=== PATIENT | male | born 1985 | race Caucasian/White ===

== ENCOUNTER 2017-03-19 11:11 | Emergency (ER) | payer BC ==
[2017-03-19 11:23] VITALS: TEMP 99.4; BMI 24.3
[2017-03-19] MEDS ORDERED: KETOROLAC TROMETHAMINE 30 MG/1 ML VIAL IVPUSH ONE (11:24)
[2017-03-19] MEDS ORDERED: morphine CARPU-JECT 4 MG/1 ML DISP.SYRIN IVPUSH ONE (11:24)
[2017-03-19] MEDS ORDERED: ONDANSETRON 4 MG/2 ML VIAL IVPB ONE (11:24)
[2017-03-19] MEDS ORDERED: ONDANSETRON 4 MG/2 ML VIAL ONE (11:25)
[2017-03-19] MEDS ORDERED: KETOROLAC TROMETHAMINE 30 MG/1 ML VIAL ONE (11:25)
[2017-03-19] MEDS ORDERED: morphine CARPU-JECT 4 MG/1 ML DISP.SYRIN ONE (11:25)
[2017-03-19] MEDS ORDERED: SODIUM CHLORIDE 1,000 ML IV STA (11:40)
--- NOTE | 2017-03-19 11:46 | PDOC ---
History of Present Illness - History of Present Illness Initial Comments: 03/19/17 11:47 The patient is a 31-year-old male with past medical history of multiple sclerosis, irritable bowel syndrome, questionable history of kidney stones, status post appendectomy presents with right flank pain since this morning. Patient reports that this radiates towards his testicles but denies testicular pain. Denies dysuria, fevers. Reports nausea and vomiting. <Sarbjit Short - Last Filed: 03/19/17 11:47> - General History Source: Patient, Spouse Exam Limitations: No Limitations <Eric Maya - Last Filed: 03/19/17 15:29> - General Chief Complaint: Pain, Acute Stated Complaint: TESTICULAR PAIN, VOMITING Time Seen by Provider: 03/19/17 11:23 Past History <Sarbjit Short - Last Filed: 03/19/17 11:47> - Surgical History Appendectomy: Yes - Immunization History Immunization Up to Date: Yes - Psycho/Social/Smoking Cessation Hx Anxiety: No Suicidal Ideation: No Smoking History: Never smoked Have you smoked in the past 12 months: No If you are a former smoker, when did you quit?: 4 YRS Hx Alcohol Use: No Drug/Substance Use Hx: No Substance Use Type: None <Eric Maya - Last Filed: 03/19/17 15:29> - Past Medical History Allergies/Adverse Reactions: Allergies Allergy/AdvReac Type Severity Reaction Status Date / Time No Known Allergies Allergy Verified 03/19/17 11:14 Home Medications: Ambulatory Orders Albuterol Sulfate Inhaler - [Ventolin Hfa Inhaler -] 1 - 2 inh PO QID 07/29/16 Glatiramer Acetate [Glatopa] 20 mg SQ DAILY 03/19/17 Naproxen [Naprosyn -] 500 mg PO BID PRN #30 tablet 03/19/17 Ondansetron HCl [Zofran] 4 mg PO Q8H #15 tablet 03/19/17 Oxycodone HCl/Acetaminophen [Percocet 5-325 mg Tablet] 1 tab PO Q6H PRN #15 tablet MDD 4 03/19/17 Sertraline HCl [Zoloft] 50 mg PO DAILY 03/19/17 Tamsulosin HCl [Flomax] 0.4 mg PO DAILY #14 cap.er.24h 03/19/17 Review of Systems - Review of Systems Comments:: 03/19/17 11:47 GENERAL/CONSTITUTIONAL: No fever or chills. No weakness. HEAD, EYES, EARS, NOSE AND THROAT: No change in vision. No ear pain or discharge. No sore throat. CARDIOVASCULAR: No chest pain or shortness of breath. RESPIRATORY: No cough, wheezing, or hemoptysis. GASTROINTESTINAL Yes: Nausea, Vomiting, right flank pain No diarrhea or constipation. GENITOURINARY: No dysuria, frequency, or change in urination. MUSCULOSKELETAL: No joint or muscle swelling or pain. No neck or back pain. SKIN: No rash NEUROLOGIC: No headache, vertigo, loss of consciousness, or change in strength/ sensation. ENDOCRINE: No increased thirst. No abnormal weight change. HEMATOLOGIC/LYMPHATIC: No anemia, easy bleeding, or history of blood clots. ALLERGIC/IMMUNOLOGIC: No hives or skin allergy. <Sarbjit Short - Last Filed: 03/19/17 11:47> *Physical Exam - Vital Signs Last Vital Signs Temp Pulse Resp BP Pulse Ox 99.4 F 87 19 142/99 97 03/19/17 11:14 03/19/17 11:14 03/19/17 11:14 03/19/17 11:14 03/19/17 11:14 - Physical Exam Comments: 03/19/17 11:48 GENERAL: Awake, alert, and fully oriented, Uncomfortable appearing HEAD: No signs of trauma EYES: PERRLA, EOMI, sclera anicteric, conjunctiva clear ENT: Auricles normal inspection, hearing grossly normal, nares patent, oropharynx clear without exudates. Moist mucosa NECK: Normal ROM, supple, no lymphadenopathy, JVD, or masses LUNGS: Breath sounds equal, clear to auscultation bilaterally. No wheezes, and no crackles HEART: Regular rate and rhythm, normal S1 and S2, no murmurs, rubs or gallops ABDOMEN: Soft, Right CVA tenderness, RLQ tender to palpation, normoactive bowel sounds. No guarding, no rebound. No masses GENITOURINARY:: Circumcised, no testicular tenderness or swelling, no inguinal hernia appreciated EXTREMITIES: Normal range of motion, no edema. No clubbing or cyanosis. No cords, erythema, or tenderness NEUROLOGICAL: Cranial nerves II through XII grossly intact. Normal speech, normal gait SKIN: Warm, Dry, normal turgor, no rashes or lesions noted. <Sarbjit Short - Last Filed: 03/19/17 11:47> - Vital Signs Last Vital Signs Temp Pulse Resp BP Pulse Ox 99.4 F 87 19 142/99 97 03/19/17 11:14 03/19/17 11:14 03/19/17 11:14 03/19/17 11:14 03/19/17 11:14 <Eric Maya - Last Filed: 03/19/17 15:29> ED Treatment Course - Medications Given in the ED: ED Medications Discontinued Medications Generic Name Dose Route Start Last Admin Trade Name Freq PRN Reason Stop Dose Admin Ketorolac Tromethamine 30 mg 03/19/17 11:24 03/19/17 11:28 Toradol Injection - IVPUSH 03/19/17 11:25 30 mg ONCE ONE Administration Morphine Sulfate 4 mg 03/19/17 11:24 03/19/17 11:27 Morphine Injection - IVPUSH 03/19/17 11:25 4 mg ONCE ONE Administration Ondansetron HCl 4 mg 03/19/17 11:24 03/19/17 11:28 Zofran Injection IVPB 03/19/17 11:25 4 mg ONCE ONE Administration <Sarbjit Short - Last Filed: 03/19/17 11:47> - LABORATORY CBC & Chemistry Diagram: 03/19/17 11:45 03/19/17 11:45 - RADIOLOGY Radiology Studies Ordered: Category Date Time Status SPIRAL- RENAL-STONE CT [CT] Stat CT Scan 03/19/17 11:40 Ordered - Medications Given in the ED: ED Medications Discontinued Medications Generic Name Dose Route Start Last Admin Trade Name Freq PRN Reason Stop Dose Admin Ketorolac Tromethamine 30 mg 03/19/17 11:24 03/19/17 11:28 Toradol Injection - IVPUSH 03/19/17 11:25 30 mg ONCE ONE Administration Morphine Sulfate 4 mg 03/19/17 11:24 03/19/17 11:27 Morphine Injection - IVPUSH 03/19/17 11:25 4 mg ONCE ONE Administration Ondansetron HCl 4 mg 03/19/17 11:24 03/19/17 11:28 Zofran Injection IVPB 03/19/17 11:25 4 mg ONCE ONE Administration <Eric Maya - Last Filed: 03/19/17 15:29> Medical Decision Making - Medical Decision Making 03/19/17 11:42 A portion of this note was documented by scribe services under my direction. I have reviewed the details of the note, within reason, and agree with the documentation with the following case summary and management plan written by me. Patient treated in the ED. Nursing notes are reviewed and incorporated into the medical decision-making. Vital signs reviewed. Peripheral IV access obtained by the nurse, laboratory studies are drawn and sent, reviewed and interpreted by myself. Vital Signs Temp Pulse Resp BP Pulse Ox 99.4 F 87 19 142/99 97 03/19/17 11:14 03/19/17 11:14 03/19/17 11:14 03/19/17 11:14 03/19/17 11:14 31-year-old male with past medical history of multiple sclerosis, irritable bowel syndrome, questionable history of kidney stones, status post appendectomy presents with right flank pain since this morning. Patient reports that this radiates towards his testicles but denies testicular pain. Denies dysuria, fevers. Reports nausea and vomiting. The patient clinically appears to have renal colic. We'll obtain labs, urinalysis and a spiral CT. Pain control and reassess. 03/19/17 15:20 CAT scan demonstrates 2.5 x 2 mm at least partially obstructing right uterovesical junction stone with mild right renal hydronephrosis and hydroureter. CBC, BMP 03/19/17 11:45 03/19/17 11:45 CMP Sodium 142 mmol/L (136-145) 03/19/17 11:45 Potassium 4.3 mmol/L (3.5-5.1) 03/19/17 11:45 Chloride 105 mmol/L (98-107) 03/19/17 11:45 Carbon Dioxide 25 mmol/L (21-32) 03/19/17 11:45 Anion Gap 12 (8-16) 03/19/17 11:45 BUN 16 mg/dL (7-18) D 03/19/17 11:45 Creatinine 1.3 mg/dL (0.7-1.3) 03/19/17 11:45 Creat Clearance w eGFR > 60 (>60) 03/19/17 11:45 Random Glucose 113 mg/dL (74-106) H 03/19/17 11:45 Calcium 9.4 mg/dL (8.5-10.1) 03/19/17 11:45 Total Bilirubin 0.5 mg/dL (0.2-1.0) D 03/19/17 11:45 AST 19 U/L (15-37) 03/19/17 11:45 ALT 26 U/L (12-78) 03/19/17 11:45 Alkaline Phosphatase 47 U/L (45-117) 03/19/17 11:45 Total Protein 7.6 g/dl (6.4-8.2) 03/19/17 11:45 Albumin 4.4 g/dl (3.4-5.0) 03/19/17 11:45 Lipase 130 U/L (73-393) 03/19/17 11:45 Urine Test Results Urine Color Jennifer 03/19/17 14:00 Urine Appearance Clear 03/19/17 14:00 Urine pH 8.0 (5.0-8.0) 03/19/17 14:00 Urine Protein 2+ (NEGATIVE) H 03/19/17 14:00 Urine Glucose (UA) Negative (NEGATIVE) 03/19/17 14:00 Urine Ketones Negative (NEGATIVE) 03/19/17 14:00 Urine Blood Negative (NEGATIVE) 03/19/17 14:00 Urine Nitrite Negative (NEGATIVE) 03/19/17 14:00 Urine Bilirubin Negative (NEGATIVE) 03/19/17 14:00 Ur Leukocyte Esterase Negative (NEGATIVE) 03/19/17 14:00 Patient reports feeling much better. This is renal colic. Return precautions given. This includes fevers, uncontrolled pain, persistent vomiting. Patient verbalized understanding agrees with plan. He has his own urologist that he will follow up with. I discussed the physical exam findings, ancillary test results and final diagnoses with the patient. I answered all of the patient's questions. The patient was satisfied with the care received and felt comfortable with the discharge plan and treatment plan. The patient will call their primary care physician within 24 hours to arrange follow-up and will return to the Emergency Department with any new, persistant or worsening symptoms. <Eric Maya - Last Filed: 03/19/17 15:29> *DC/Admit/Observation/Transfer - Attestations Scribe Attestion: 03/19/17 11:48 Documentation prepared by Sarbjit Short, acting as medical imaging director for Eric Maya MD <Sarbjit Short - Last Filed: 03/19/17 11:47> - Discharge Dispostion Admit: No <Eric Maya - Last Filed: 03/19/17 15:29> Diagnosis at time of Disposition: Renal colic - Discharge Dispostion Disposition: HOME Condition at time of disposition: Improved - Prescriptions Prescriptions: Tamsulosin HCl [Flomax] 0.4 mg PO DAILY #14 cap.er.24h Naproxen [Naprosyn -] 500 mg PO BID PRN #30 tablet PRN Reason: Pain Oxycodone HCl/Acetaminophen [Percocet 5-325 mg Tablet] 1 tab PO Q6H PRN #15 tablet MDD 4 PRN Reason: Pain Level 6-10 Ondansetron HCl [Zofran] 4 mg PO Q8H #15 tablet - Patient Instructions Printed Discharge Instructions: DI for Kidney Stones Additional Instructions: Take 500 mg naproxen every 12 hours as needed for pain. Take a tablet of percocet every 6 hours as needed for severe pain control. Take zofran every 8 hours as needed for nausea. Take the flomax as prescribed. Drink plenty of fluids and rest. Follow up with your doctor.l
[2017-03-19 11:56] LABS: BASOPHIL 0.7 % (0-2.0); EOSINOPHIL 1.4 % (0-4.5); MCH 31.2 pg (25.7-33.7); MEAN CELL VOLUME 91.6 fl (80-96); MEAN PLT VOLUME 9.3 fl (7.5-11.1); NEUTROPHILS 66.4 % (42.8-82.8); PLATELET COUNT 214 K/MM3 (134-434); RDW 12.5 % (11.9-15.9); WHITE BLOOD COUNT 9.2 K/mm3 (4.0-10.0)
[2017-03-19 12:27] LABS: ALBUMIN 4.4 g/dl (3.4-5.0); ANION GAP 12 (8-16); BILIRUBIN,TOTAL 0.5 mg/dL (0.2-1.0); CALCIUM 9.4 mg/dL (8.5-10.1); CO2 25 mmol/L (21-32); CREATININE 1.3 mg/dL (0.7-1.3); GLUCOSE,RANDOM 113 mg/dL (74-106); SGOT/AST 19 U/L (15-37); SGPT/ALT 26 U/L (12-78); TOT PROT 7.6 g/dl (6.4-8.2)
[2017-03-19 12:28] LABS: ALK PHOS 47 U/L (45-117)
[2017-03-19 14:41] VITALS: BP 130/71; PULSE 52
[2017-03-19 14:57] LABS: URINE APPEARANCE CLEAR; URINE BILIRUBIN NEGATIVE (NEGATIVE); URINE BLOOD NEGATIVE (NEGATIVE); URINE COLOR AMBER; URINE GLUCOSE (UA) NEGATIVE (NEGATIVE); URINE KETONE NEGATIVE (NEGATIVE); URINE LEUK ESTERASE NEGATIVE (NEGATIVE); URINE NITRITE NEGATIVE (NEGATIVE); URINE UROBILINOGEN NEGATIVE mg/dL (0.2-1.0)
[2017-03-19 15:03] LABS: URINE PROTEIN 2+ (NEGATIVE)
[2017-03-19] MEDS ORDERED: TAMSULOSIN HCL 0.4 MG CAP.ER.24H (FP) PO ONE (15:15)
[2017-03-19] MEDS ORDERED: TAMSULOSIN HCL 0.4 MG CAP.ER.24H (FP) ONE (15:21)
[2017-03-19 16:02] LABS: URINE MUCUS MODERATE; URINE RBC 25 /hpf (0-3)
== END 2017-03-19 15:40 | disposition home or self-care (01) ==
LOC: JER 11:11
PROC: 3E0333Z Introduction of Anti-inflammatory into Peripheral Vein, Percutaneous Approach (ICD-10-PCS; principal; 2017-03-19)
PROC: 3E033GC Introduction of Other Therapeutic Substance into Peripheral Vein, Percutaneous Approach (ICD-10-PCS; 2017-03-19)
PROC: 3E033NZ Introduction of Analgesics, Hypnotics, Sedatives into Peripheral Vein, Percutaneous Approach (ICD-10-PCS; 2017-03-19)
PROC: 3E0337Z Introduction of Electrolytic and Water Balance Substance into Peripheral Vein, Percutaneous Approach (ICD-10-PCS; 2017-03-19)
DX: N23 Unspecified renal colic (principal); Z87.891 Personal history of nicotine dependence
CPT/HCPCS: 36415; 74176; 80053; 81003; 81015; 83690; 85025; 87086; 99283-25

== ENCOUNTER 2019-09-11 09:57 | Emergency (ER) | payer BC ==
[2019-09-11 10:09] VITALS: BMI 22.1
--- NOTE | 2019-09-11 10:29 | PDOC ---
History of Present Illness - General Chief Complaint: Weakness Stated Complaint: PAIN Time Seen by Provider: 09/11/19 10:25 - History of Present Illness Initial Comments: 09/11/19 10:28 33 yo M with h/o relapsing remitting multiple sclerosis, IBS, appendectomy who p /w nausea, vomiting, cough. Patient reports 4 days of nausea, with nighttime vomiting (multiple episodes NBNB emesis). Denies abdominal pain, diarrhea. Reports decreased PO intake. Also endorses 4 days of non productive cough, SOB, subjective fevers and chills, and post-tussive emesis. Symptoms not improved with OTC medication, Zofran. Patient completed Azithromycin for current symptoms. Reports generalized weakness. Patient reports home sick contacts ( with flu, and child with strep). Recently tested for Flu and Strep at Urgent care 2 days prior to arrival, which were negative. Follows with neurology for symptom management/MS. Patient denies KOO, vision change, palpitations, wheezing, orthopena, PND, leg swelling/pain, F,C, CP, urinary complaints, hematuria, BPR, abdominal pain, diarrhea, constipation, lightheadedness, sensory changes. PMHx: as noted above ROS: as noted SHx: Denies Etoh, IVDA. Distant tobacco use. Allergies: NKDA Past History - Past Medical History Allergies/Adverse Reactions: Allergies Allergy/AdvReac Type Severity Reaction Status Date / Time No Known Allergies Allergy Verified 09/11/19 10:09 Home Medications: Ambulatory Orders Albuterol Sulfate Inhaler - [Ventolin Hfa Inhaler -] 1 - 2 inh PO QID 07/29/16 Glatiramer Acetate [Glatopa] 20 mg SQ DAILY 03/19/17 Naproxen [Naprosyn -] 500 mg PO BID PRN #30 tablet 03/19/17 Ondansetron HCl [Zofran] 4 mg PO Q8H #15 tablet 03/19/17 Oxycodone HCl/Acetaminophen [Percocet 5-325 mg Tablet] 1 tab PO Q6H PRN #15 tablet MDD 4 03/19/17 Sertraline HCl [Zoloft] 50 mg PO DAILY 03/19/17 Tamsulosin HCl [Flomax] 0.4 mg PO DAILY #14 cap.er.24h 03/19/17 Ondansetron [Zofran *Odt*] 4 mg SL BID #14 od.tablet 09/11/19 COPD: No Other medical history: MULTIPLE SCLEROSIS - Surgical History Appendectomy: Yes - Immunization History Immunization Up to Date: Yes - Psycho Social/Smoking Cessation Hx Smoking History: Former smoker Have you smoked in the past 12 months: No If you are a former smoker, when did you quit?: 4 YRS Information on smoking cessation initiated: No Hx Alcohol Use: No Drug/Substance Use Hx: No (MARIJUANA OCCASSIONAL) Substance Use Type: None Review of Systems - Review of Systems Comments:: 09/11/19 10:28 GENERAL/CONSTITUTIONAL: + fever or chills. HEAD, EYES, EARS, NOSE AND THROAT: No change in vision. No ear pain or discharge. No sore throat. CARDIOVASCULAR: + SOB, cough. No chest pain. RESPIRATORY: No cough, wheezing, or hemoptysis. GASTROINTESTINAL:+ nausea, vomiting. No diarrhea or constipation. GENITOURINARY: No dysuria, frequency, or change in urination. MUSCULOSKELETAL: No joint or muscle swelling or pain. No neck or back pain. SKIN: No rash NEUROLOGIC: + Weakness. No headache, vertigo, loss of consciousness, or change in strength/sensation. ENDOCRINE: No increased thirst. No abnormal weight change HEMATOLOGIC/LYMPHATIC: No anemia, easy bleeding, or history of blood clots. ALLERGIC/IMMUNOLOGIC: No hives or skin allergy. *Physical Exam - Vital Signs Last Vital Signs Temp Pulse Resp BP Pulse Ox 98.0 F 89 20 103/81 100 09/11/19 10:06 09/11/19 10:06 09/11/19 10:06 09/11/19 10:06 09/11/19 10:06 - Physical Exam 09/11/19 10:29 GENERAL: Awake, alert, and fully oriented, in no acute distress HEAD: No signs of trauma, normocephalic, atraumatic EYES: PERRLA, EOMI, sclera anicteric, conjunctiva clear ENT: + Dry mucous membranes. Hearing grossly normal, nares patent, oropharynx clear without exudates. NECK: Normal ROM, supple, no lymphadenopathy, JVD, or masses LUNGS: No distress, speaks full sentences, clear to auscultation bilaterally HEART: Regular rate and rhythm, normal S1 and S2, no murmurs, rubs or gallops, peripheral pulses normal and equal bilaterally. ABDOMEN: Soft, nontender, normoactive bowel sounds. No guarding, no rebound. No masses EXTREMITIES : Normal inspection, Normal range of motion, no edema. No clubbing or cyanosis NEUROLOGICAL: Cranial nerves II through XII grossly intact. Normal speech, normal gait, no focal sensorimotor deficits SKIN: Warm, Dry, normal turgor, no rashes or lesions noted ED Treatment Course - LABORATORY CBC & Chemistry Diagram: 09/11/19 10:59 09/11/19 10:59 Medical Decision Making - Medical Decision Making 09/11/19 10:57 33 yo M with h/o relapsing remitting multiple sclerosis, IBS, appendectomy who p /w nausea, vomiting, cough x 4 days. Vitals wnl, AF, A&Ox3. Physical exam notable for dry mucous membranes. Otherwise unremarkable. Will assess for electrolyte abnml, metabolic and toxic derangements, infection. Possible viral syndrome, gastritis, URI. Will assess for biliary dz., pancreatitis. Will rpovide IV fluid hydration, anti-emetic control, and reassess. ED Course: Zofran, NS 09/11/19 11:14 NS, Tylenol, Zofran 09/11/19 13:03 Laboratory Tests 09/11/19 09/11/19 09/11/19 10:59 10:59 10:59 WBC 5.5 Hgb 14.7 Hct 42.5 Plt Count 136 D Sodium 140 Chloride 106 BUN 15.3 Creatinine 1.1 Total Bilirubin 0.4 AST 30 ALT 41 Alkaline Phosphatase 43 L Lipase 145 09/11/19 13:04 CXR: No acute pathology Patient tolerating PO intake. Patient symptoms improved. Stable for d/c with return precautions. Discharge - Discharge Information Problems reviewed: Yes Clinical Impression/Diagnosis: Nausea and vomiting in adult Condition: Stable Disposition: HOME - Additional Discharge Information Prescriptions: Ondansetron [Zofran *Odt*] 4 mg SL BID #14 od.tablet - Follow up/Referral Referrals: Rodríguez Sommers MD [Primary Care Provider] - - Patient Discharge Instructions Patient Printed Discharge Instructions: DI for Nausea -- Adult Additional Instructions: Please return to the emergency department with any new or worsening symptoms or concerns. Please follow up with your neurologist and primary care physician within 72 hours. - Post Discharge Activity
[2019-09-11] MEDS ORDERED: SODIUM CHLORIDE 1,000 ML IV STA (11:14)
[2019-09-11] MEDS ORDERED: ACETAMINOPHEN 1000 MG/100 ML VIAL (NON FORMULARY) IVPB ONE (11:14)
[2019-09-11] MEDS ORDERED: ONDANSETRON 4 MG/2 ML VIAL IVPUSH ONE (11:14)
[2019-09-11] MEDS ORDERED: ACETAMINOPHEN INJECTION 100 ML IVPB ONE (11:22)
[2019-09-11] MEDS ORDERED: ONDANSETRON 4 MG/2 ML VIAL ONE (11:22)
[2019-09-11 11:52] LABS: BASO % 0.3 % (0-2.0); HEMATOCRIT 42.5 % (35.4-49); HEMOGLOBIN 14.7 GM/dL (11.7-16.9); LYMPH % 9.5 % (8-40); MCH 31.5 pg (25.7-33.7); MCHC 34.7 g/dl (32.0-35.9); MEAN CELL VOLUME 90.8 fl (80-96); MEAN PLT VOLUME 9.5 fl (7.5-11.1); MONO % 9.6 % (3.8-10.2); NEUT % 80.6 % (42.8-82.8); PLATELET COUNT 136 K/MM3 (134-434); RBC 4.68 M/mm3 (4.00-5.60); RDW 12.6 % (11.9-15.9); WHITE BLOOD COUNT 5.5 K/mm3 (4.0-10.0)
--- NOTE | 2019-09-11 12:13 | EKG ---
Test Reason : Blood Pressure : / mmHG Vent. Rate : 065 BPM Atrial Rate : 065 BPM P-R Int : 140 ms QRS Dur : 086 ms QT Int : 402 ms P-R-T Axes : 046 060 040 degrees QTc Int : 418 ms NORMAL SINUS RHYTHM NORMAL ECG NO PREVIOUS ECGS AVAILABLE Confirmed by Dequan Rodriguez ([id number]) on 09/11/2019 12:12:53 PM Referred By: Confirmed By:Dequan Rodriguez
[2019-09-11 12:29] LABS: BILIRUBIN,TOTAL 0.4 mg/dL (0.2-1); BLOOD UREA NITROGEN 15.3 mg/dL (7-18); CALCIUM 8.9 mg/dL (8.5-10.1); CREATININE 1.1 mg/dL (0.55-1.3); POTASSIUM 4.1 mmol/L (3.5-5.1); TOT PROT 7.1 g/dl (6.4-8.2)
[2019-09-11 14:41] VITALS: BP 112/67; PULSE 72; TEMP 98
--- NOTE | 2019-09-11 14:55 | PDOC ---
Documentation entered by Yumiko Renner SCRIBE, acting as scribe for Kimberlyn Reinoso MD. Kimberlyn Reinoso MD: This documentation has been prepared by the Zurdo garces Nirvannie, SCRIBE, under my direction and personally reviewed by me in its entirety. I confirm that the documentation accurately reflects all work, treatment, procedures, and medical decision making performed by me. Attending Attestation - Resident Resident Name: JeramieManuel - ED Attending Attestation I have performed the following: I have examined & evaluated the patient, The case was reviewed & discussed with the resident, I agree w/resident's findings & plan, Exceptions are as noted - HPI HPI: 09/11/19 12:29 The patient is a 33 year old male, with a significant past medical history of MS , IBS, who presents to the emergency department with 4 days of nausea, vomiting , subjective fevers with chills, and cough. As per patient, his was recently sick with similar symptoms. He notes a recent course of Azithromycin for symptoms, with minimal relief. Patient was recently tested negative for strep and influenza. Patient notes associated weakness to the right side of his body similar to previous MS flare ups, prompting his arrival to the ED. He denies any recent chest pain or shortness of breath. He denies any recent dysuria, frequency, urgency or hematuria. Allergies: NKDA Past surgical history: Appendectomy. - Physicial Exam PE: 09/11/19 12:39 GENERAL: Awake, alert, and fully oriented, in no acute distress HEAD: No signs of trauma EYES: PERRLA, EOMI, sclera anicteric, conjunctiva clear ENT: Auricles normal inspection, hearing grossly normal, nares patent, oropharynx clear without exudates. Moist mucosa NECK: Normal ROM, supple, no lymphadenopathy, JVD, or masses LUNGS: Breath sounds equal, clear to auscultation bilaterally. No wheezes, and no crackles HEART: Regular rate and rhythm, normal S1 and S2, no murmurs, rubs or gallops ABDOMEN: Soft, nontender, normoactive bowel sounds. No guarding, no rebound. No masses EXTREMITIES: Normal range of motion, no edema. No clubbing or cyanosis. No cords, erythema, or tenderness NEUROLOGICAL: Cranial nerves II through XII grossly intact. Normal speech. SKIN: Warm, Dry, normal turgor, no rashes or lesions noted. - Medical Decision Making 09/11/19 13:45 Pt presents to the ED complaining of generalized weakness, nausea and vomiting. Neurologically intact. initial concern for dehydration, flu. Improved after IV hydration. Will discharge home. 09/11/19 14:54
== END 2019-09-11 14:44 | disposition home or self-care (01) ==
LOC: JER 09:57
PROC: 3E033NZ Introduction of Analgesics, Hypnotics, Sedatives into Peripheral Vein, Percutaneous Approach (ICD-10-PCS; principal; 2019-09-11)
PROC: 3E033GC Introduction of Other Therapeutic Substance into Peripheral Vein, Percutaneous Approach (ICD-10-PCS; 2019-09-11)
DX: R11.2 Nausea with vomiting, unspecified (principal); G35 Multiple sclerosis; K58.9 Irritable bowel syndrome, unspecified
CPT/HCPCS: 36415; 71046-TC-FY; 80053; 83690; 85025; 93005; 93010; 99285-25; J0131; J7030